=== PATIENT | male | born 1965 | race Caucasian/White ===

== ENCOUNTER 2019-03-12 20:58 | Inpatient (IN) | payer OTHER ==
[~2019-03-12] VITALS: Ht 188 cm; Wt 83.1 kg
[2019-03-12] VITALS (15 sets, daily range): BP systolic 69–107; BP diastolic 41–65
[2019-03-12] MEDS ORDERED: ISOSORBIDE DINI30 MG PO (21:02)
[2019-03-12] MEDS ORDERED: K-TAB10 MEQ PO (21:03)
[2019-03-12] MEDS ORDERED: PROZAC20 MG PO (21:03)
[2019-03-12] MEDS ORDERED: CHLORTHALIDONE25 MG PO (21:03)
[2019-03-12] MEDS ORDERED: AMBIEN10 MG PO (21:04)
[2019-03-12] MEDS ORDERED: SEROQUEL50 MG PO (21:04)
[2019-03-12] MEDS ORDERED: METOPROLOL TART25 MG PO (21:04)
[2019-03-12] MEDS ORDERED: BRILINTA90 MG PO (21:05)
[2019-03-12] MEDS ORDERED: PROTONIX20 MG PO (21:05)
[2019-03-12] MEDS ORDERED: REMERON30 MG PO (21:06)
--- NOTE | 2019-03-12 21:10 | NUR ---
EDUCATIONAL RESOURCE COORDINATOR INFORMED OF NEED FOR MENTAL HEALTH SCREENING.
--- NOTE | 2019-03-12 21:23 | NUR ---
URINAL AT BEDSIDE. PT CHANGED INTO BLUE PAPER SCRUBS AT THIS TIME. BELONGINGS PLACED AT NURSING STATION. PT BROTHER AT BEDSIDE STATES THIS IS NOT HIS BROTHERS USUAL BEHAVIOR. PT HAS BEEN IN [place] BEFORE DUE TO DEPRESSION/SI.
[2019-03-12 22:00] LABS: BASOPHILS 0.2 % (0-2); HEMATOCRIT 48.3 % (42.0-54.0); HEMOGLOBIN 16.9 g/dL (13.5-17.5); IMMATURE GRANULOCYTES 0.5 % (0-5); LYMPHOCYTES 15.9 % (15-50); MCV 88.6 fL (80.0-100.0); MEAN PLATELET VOLUME 11.1 fL (7.4-10.4); MONOCYTES 5.7 % (2-11); NEUTROPHILS 76.7 % (40-80); PLATELET COUNT 227 10x3/uL (130-400); RBC 5.45 10x6/uL (4.20-6.10); WBC 13.8 10x3/uL (4.8-10.8)
--- NOTE | 2019-03-12 22:00 | NUR ---
POISON CONTROL CALLED MONITOR S/S INFORMED.
[2019-03-12 22:13] LABS: ACETAMINOPHEN 1.6 ug/mL (10.0-30.0); ALBUMIN 2.8 g/dL (3.4-5.0); ALKALINE PHOSPHATASE 65 U/L (46-116); ALT (SGPT) 43 U/L (10-68); BILIRUBIN - TOTAL 0.11 mg/dL (0.2-1.3); CALC OSMOLALITY 285 mosm/kg (275-300); CALCIUM 8.2 mg/dL (8.5-10.1); CARBON DIOXIDE 26.9 mmol/L (21.0-32.0); CHLORIDE - SERUM 106 mmol/L (98-107); CREATININE - SERUM 0.8 mg/dL (0.6-1.3); GLUCOSE 101 mg/dL (74-106); MAGNESIUM - SERUM 2.1 mg/dL (1.8-2.4); PROTEIN - SERUM 5.4 g/dL (6.4-8.2); SODIUM 143 mmol/L (136-145); UREA NITROGEN 15 mg/dL (7-18); eGFR NON AFRICAN AMERICAN > 90 mL/min (90-120)
--- NOTE | 2019-03-12 23:00 | NUR ---
MENTAL HEALTH NURSE AT BEDSIDE. PT TO SEDATED FOR ASSESSEMENT AT THIS TIME. INFORMED.
[2019-03-12 23:01] LABS: APPEARANCE CLEAR (CLEAR); BILIRUBIN NEGATIVE (NEGATIVE); COLOR YELLOW (YELLOW); GLUCOSE NEGATIVE (NEGATIVE); KETONE NEGATIVE (NEGATIVE); NITRITE NEGATIVE (NEGATIVE); PROTEIN NEGATIVE (NEGATIVE); SPECIFIC GRAVITY 1.015 (1.005-1.020); UROBILINOGEN NORMAL (NORMAL)
[2019-03-12 23:08] LABS: UDS - AMPHET NEGATIVE QUAL (NEGATIVE); UDS - BARB NEGATIVE QUAL (NEGATIVE); UDS - BENZO NEGATIVE QUAL (NEGATIVE); UDS - COCAINE NEGATIVE QUAL (NEGATIVE); UDS - OPIATE NEGATIVE QUAL (NEGATIVE); UDS - PCP NEGATIVE QUAL (NEGATIVE); UDS - THC POSITIVE QUAL (NEGATIVE)
--- NOTE | 2019-03-12 23:17 | NUR ---
ns bolus complete pt bp still hypotensive md informed see emar
[2019-03-13] VITALS (41 sets, daily range): BP systolic 85–149; BP diastolic 45–98; Ht 188 cm; Wt 83.1 kg
--- NOTE | 2019-03-13 00:42 | NUR ---
MENTAL HEALTH RN AT BEDSIDE FOR ASSESSMENT
--- NOTE | 2019-03-13 00:45 | NUR ---
PT STANDING UP AT BEDSIDE USING URINAL AT THIS TIME.
--- NOTE | 2019-03-13 00:59 | NUR ---
DR LAL NOTIFIED AND REVIEWED PT's BEHAVIOR AND ASSESSMENT RESULTS. PT IS A LOW RISK PER DR LAL. DR LAL STATED TO GIVE RESOURCES TO PT AT TIME OF DISCHARGE. NO FURTHER ORDERRS AT THIS TIME. RESOURCES REVIEWED WITH PT AND HE VERBALIZED UNDERSTANDING.
--- NOTE | 2019-03-13 01:00 | NUR ---
PT EATING SANDWICH AND SPRITE AT THIS TIME DENIES NEEDS
--- NOTE | 2019-03-13 02:45 | NUR ---
RECEIVED PATIENT TO ICU ROOM 2310 VIA WC ACCOMPANIED BY [facility] ED STAFF JOSE M LINDO. ASSISTED TO ICU BED. MONITORS ATTATCHED PATIENT WITH ALARMS SET. VSS. ADMISSION ASSESSMENT COMPLETED PER FLOW SHEET WITH NO ACUTE DISTRESS OBSERVED. DENIES ANY PREVIOUS OR PRESENT SUICIDAL IDEATION OR ACTS OF SELF HARM.
--- NOTE | 2019-03-13 05:00 | NUR ---
RESTING WITH EYES CLOSED, ROUSES EASILY. A&O X 4. SPEECH CLEAR. VSS
[2019-03-13 09:05] LABS: BASOPHILS 0.5 % (0-2); EOSINOPHILS 1.8 % (0-7); HEMATOCRIT 46.9 % (42.0-54.0); IMMATURE GRANULOCYTES 0.1 % (0-5); LYMPHOCYTES 33.6 % (15-50); MCH 30.4 pg (26.0-34.0); MCHC 34.1 g/dL (31.0-37.0); MEAN PLATELET VOLUME 11.5 fL (7.4-10.4); MONOCYTES 11.3 % (2-11); NEUTROPHILS 52.7 % (40-80); PLATELET COUNT 231 10x3/uL (130-400); RBC 5.27 10x6/uL (4.20-6.10)
[2019-03-13 09:16] LABS: CALC OSMOLALITY 288 mosm/kg (275-300); CALCIUM 8.2 mg/dL (8.5-10.1); CARBON DIOXIDE 29.1 mmol/L (21.0-32.0); CHLORIDE - SERUM 109 mmol/L (98-107); CREATININE - SERUM 0.7 mg/dL (0.6-1.3); GLUCOSE 86 mg/dL (74-106); POTASSIUM - SERUM 4.1 mmol/L (3.5-5.1); SODIUM 145 mmol/L (136-145); UREA NITROGEN 14 mg/dL (7-18); eGFR NON AFRICAN AMERICAN > 90 mL/min (90-120)
[2019-03-13 09:29] LABS: WBC 7.4 10x3/uL (4.8-10.8)
--- NOTE | 2019-03-13 17:44 | NUR ---
0700 AWAKE ALERT VOICES NO COMPLAINTS ASSESSMENT COMPLETE
--- NOTE | 2019-03-13 17:45 | NUR ---
0900 APPETITE GOOD VOIDS WITHOUT DIFFICULTY
--- NOTE | 2019-03-13 17:45 | NUR ---
1100 APPETITE GOOD DENIES NAUSEA DENIES THOUT OF HARMING SELF
--- NOTE | 2019-03-13 17:46 | NUR ---
1300 REMAINS IN ROOM DENIES PAIN
--- NOTE | 2019-03-13 17:47 | NUR ---
1700 DR BHAKTA MADE ROUNDS ON PATIENT
--- NOTE | 2019-03-13 17:50 | NUR ---
[address] THAT DR BHAKTA DOESNT THINK PATIENT IS A RISK TO HARM HIMSELF
--- NOTE | 2019-03-13 19:45 | NUR ---
RECEIVED CARE OF PT, ASSESSMENT PER FLOWSHEET. PT ALERT AND ORIENTED, HR SR ON CM, VSS, PPP, DENIES ANY NEEDS AT THIS TIME, ABLE TO REPOSITION SELF WITHOUT DIFFICULTY. CALL LIGHT IN REACH.
--- NOTE | 2019-03-13 21:40 | NUR ---
[place] WITH POISON CONTROL CALLED, UPDATE GIVEN.
--- NOTE | 2019-03-13 23:50 | NUR ---
PT RESTING IN BED WITH EYES CLOSED, SR ON CM, VSS
--- NOTE | 2019-03-14 01:50 | NUR ---
PT RESTING IN BED WITH EYES CLOSED, BREATHING EVEN AND UNLABORED, CONT POC.
[2019-03-14 03:00] VITALS: BP 142/86
[2019-03-14 03:20] LABS: BASOPHILS 0.4 % (0-2); EOSINOPHILS 2.6 % (0-7); HEMATOCRIT 44.6 % (42.0-54.0); IMMATURE GRANULOCYTES 0.3 % (0-5); LYMPHOCYTES 34.1 % (15-50); MCH 29.8 pg (26.0-34.0); MCHC 33.6 g/dL (31.0-37.0); MCV 88.5 fL (80.0-100.0); MEAN PLATELET VOLUME 10.9 fL (7.4-10.4); MONOCYTES 11.6 % (2-11); PLATELET COUNT 196 10x3/uL (130-400); RBC 5.04 10x6/uL (4.20-6.10); WBC 7.3 10x3/uL (4.8-10.8)
[2019-03-14 03:27] LABS: CALC OSMOLALITY 291 mosm/kg (275-300); CALCIUM 8.4 mg/dL (8.5-10.1); CARBON DIOXIDE 29.5 mmol/L (21.0-32.0); CHLORIDE - SERUM 111 mmol/L (98-107); CREATININE - SERUM 0.8 mg/dL (0.6-1.3); GLUCOSE 118 mg/dL (74-106); SODIUM 145 mmol/L (136-145); UREA NITROGEN 17 mg/dL (7-18); eGFR NON AFRICAN AMERICAN > 90 mL/min (90-120)
[2019-03-14 03:28] LABS: POTASSIUM - SERUM 4.8 mmol/L (3.5-5.1)
--- NOTE | 2019-03-14 05:06 | NUR ---
AM LABS REVIEWED, NOTHING TO TREAT PER ELECTROLYTE PROTOCOL.
[2019-03-14 07:00] VITALS: BP 126/78
[2019-03-14 08:00] VITALS: BP 121/97
[2019-03-14 09:00] VITALS: BP 141/78
--- NOTE | 2019-03-14 10:13 | NUR ---
0700 AWAKE, ALERT VOICES NO COMPLAINTS ASSESSMENT COMPLETE
--- NOTE | 2019-03-14 10:14 | NUR ---
0900 VOIDING WITHOUT DIFFICULTY BM NOTED UP IN ROOM TO BSC APPETITE GOOD
--- NOTE | 2019-03-14 10:36 | CN ---
PATIENT NAME:GLENN MCCURDY MEDICAL RECORD: [id number] : 61 LOCATION:ALAN.2310 ADMIT DATE: 03/13/19 ACCOUNT: [id number] CONSULTING PHYSICIAN: JANETH LAL MD REFERRING PHYSICIAN: STEWART GENTILE MD DATE OF CONSULTATION: 03/13/2019 IDENTIFYING DATA: The patient is 53 years old and he was admitted to the hospital secondary to an overdose. CHIEF COMPLAINT: None. HISTORY OF PRESENT ILLNESS: The patient is a known chronically mentally ill person, who takes a number of medications. He forgot to take his morning medicines and had consumed several beers, he says it was 4, but his blood alcohol level sometime after arriving here was still 148. He remembered that he had not taken his medicines, so he took both his morning and night medicines together, passed out in the rain and was found by his brother. He admits that he did something that was irresponsible. There is no evidence of acute or direct dangerousness. No evidence that he intended to harm himself. There is strong evidence that he has a substance abuse problem and there is strong evidence that he has below average intelligence and uses extremely poor judgment, but no evidence of direct acute dangerousness. MENTAL STATUS EXAMINATION: The patient is awake, alert and oriented fully. His mood is euthymic. His affect appropriate. Thought processes are goal directed. Memory, concentration, and abstraction abilities are mildly impaired, and he denies any intent to harm himself or others as well as overt psychotic symptoms. ASSESSMENT: 1. Schizophrenia by history. 2. Alcohol abuse. PLAN: The patient is seeing a therapist at the [facility]. He should continue to do this. He clearly has a substance abuse problem even though he is minimizing it. He says he will not drink anymore and that he will go to the outpatient appointments. I hope that is correct. I think that he did have the potential to be quite serious particularly if he had passed out face down in the mud. Unfortunately, I do not think that there is much that can be done for him on an inpatient basis and he certainly does not want to go inpatient even though I would have referred him to it had he had any desire to do so. He wants to go home. He wants to follow up with the outpatient program at [facility], and he says he is not going to drink. I would recommend he be discharged as soon as he is medically stable. TRANSINT:[id number] Voice Confirmation ID: [id number] DOCUMENT ID: [id number] CONSULT REPORT [id number] GLENN MCCURDY PETER MD at 1036 CC: [id number] DICTATION DATE: 03/13/19 1535 JOCKEY'S AGENT: 03/14/19 0330 ADM IN [place] [id number] [place] [address]
[2019-03-14 11:00] VITALS: BP 137/93
--- NOTE | 2019-03-14 16:18 | NUR ---
1300 RESTING QUIETLY AFTER LUNCH
--- NOTE | 2019-03-14 16:18 | NUR ---
1100 APPETITE GOOD VOICES NO COMPLAINTS
--- NOTE | 2019-03-14 16:20 | NUR ---
1500 DISCHARGE ORDERS WRITTEN CALLED PHARMACY TO RETURN HIS HOME MEDS TP HIS ROOM
--- NOTE | 2019-03-14 16:21 | NUR ---
1515 HOME MEDS RETURNED WAITING FOR PATIENTS BROTHER TO ARRIVE FOR TRANSPORT HOME.
--- NOTE | 2019-03-14 19:05 | MORECARE ---
CASE MANAGEMENT DISCHARGE SUMMARY PATIENT: GLENN MCCURDY UNIT: [id number] ADM DATE: 03/13/19 AGE: 53 : 61 SEX: M ROOM/BED: D.2310 AUTHOR: FELECIA VÁZQUEZ PHYSICIAN: REFERRING PHYSICIAN: STEWART GENTILE MD DATE OF SERVICE: 03/14/19 Discharge Plan Patient Name: GLENN MCCURDY [facility] [facility] 1965 Planned Disposition: Anticipated Discharge Date: 03/14/19 Discharge Date: 03/14/2019 Expected LOS: 1 Initial Reviewer: [email or web address] Initial Review Date: 03/13/2019 Generated: 03/14/19 8:05 pm Patient Name: GLENN MCCURDY Page [id number] at 1905 All edits/amendments must be made on the electronic document DICTATION DATE: 03/14/191903 AIRPLANE PILOT COMMERCIAL: MARIA ESTHER 03/14/191903 RPT#: [id number] DC DATE:03/14/19 STATUS: DIS IN [facility] [address] [place] [address] END OF REPORT
== END 2019-03-14 17:15 | disposition home or self-care (01) | DRG 918 ==
LOC: D.ER 20:58 → D.ICU 03-13 00:24 → OBSVTIME 03-13 00:24 → D.ICU 03-13 00:24
PROVIDERS: Family Medicine; ADMIT Internal Medicine Nephrology; ATTEND Internal Medicine Nephrology
DX: T42.6X1A Poisoning by other antiepileptic and sedative-hypnotic drugs, accidental (unintentional), initial encounter (principal); F17.203 Nicotine dependence unspecified, with withdrawal; F32.9 Major depressive disorder, single episode, unspecified; F20.9 Schizophrenia, unspecified; I10 Essential (primary) hypertension; K21.9 Gastro-esophageal reflux disease without esophagitis; I25.10 Atherosclerotic heart disease of native coronary artery without angina pectoris; F10.10 Alcohol abuse, uncomplicated

== ENCOUNTER 2019-05-05 08:00 | Day surgery (SDC) | payer OTHER ==
[2019-05-04 15:22] LABS: HEMATOCRIT 45.8 % (42.0-54.0); HEMOGLOBIN 16.2 g/dL (13.5-17.5); MCH 30.5 pg (26.0-34.0); MCHC 35.4 g/dL (31.0-37.0); MCV 86.3 fL (80.0-100.0); MEAN PLATELET VOLUME 10.4 fL (7.4-10.4); RBC 5.31 10x6/uL (4.20-6.10); WBC 12.6 10x3/uL (4.8-10.8)
[2019-05-04 15:28] LABS: APTT 25.4 SECONDS (22.8-39.4); INR 1.05 (0.85-1.17); PROTIME 13.2 SECONDS (11.6-15.0)
--- NOTE | 2019-05-04 16:26 | NUR ---
YI APPT: PATIENT STATES WAS INSTRUCTED TO HOLD BRILINTA PRIOR TO SURGERY. LAST DOSE REPORTED 04/29/19. PATIENT REPORTS HE HASN'T BEEN TAKING ANY OF HIS PRESCRIBED HOME MEDICATIONS SINCE 04/29/19. STATES "I DON'T NEED THEM, I'VE BEEN DOING FINE & FEELING FINE". INFORMED PATIENT THE IMPORTANCE OF TAKING MEDICATIONS PRESCRIBED OR NOTIFY MD THAT HE WANTS TO DISCONTINUE MEDS. GEOFFREY AT DR. KIRKPATRICK'S OFFICE NOTIFIED OF ABOVE.
[~2019-05-05] VITALS: Ht 188 cm; Wt 84.4 kg
[~2019-05-05 08:00] MED LIST: AMBIEN10 MG PO; BRILINTA90 MG PO; CHLORTHALIDONE25 MG PO; ISOSORBIDE DINI30 MG PO; K-TAB10 MEQ PO; METOPROLOL TART25 MG PO; PROTONIX20 MG PO; PROZAC20 MG PO; REMERON30 MG PO; SEROQUEL50 MG PO
[2019-05-05 08:22] VITALS: BP 147/89; Ht 188 cm; Wt 84.4 kg
--- NOTE | 2019-05-05 11:15 | OP ---
PATIENT NAME: GLENN MCCURDY MEDICAL RECORD: [id number] :61 LOCATION:D.OPS ADMISSION DATE: SURGEON: MANJIT KIRKPATRICK MD DATE OF OPERATION: 05/05/2019 SURGEON: Manjit Kirkpatrick MD ANESTHESIA: TIVA by Glenis Brand CRNA. DIAGNOSIS: Urethral meatal stenosis, bladder outlet obstruction. PROCEDURE: Cystoscopy. FINDINGS: Urethral meatal stricture which was dilated with the scope. Bladder neck obstruction. In the bladder, there are single ureteral orifices bilaterally. There are no bladder tumors. BLOOD LOSS: None. CLINICAL HISTORY: This is a 53-year-old male, who complains of pain at the tip of the penis with voiding. Otherwise, he has nocturia times zero. No urgency, no frequency. There is some hesitancy getting started and the stream is weak. He comes today for cystoscopy to look for urethral stricture. He is not allergic to any medications. He was given Ancef barrel rifler button to the OR. DESCRIPTION OF PROCEDURE: The patient was given IV sedation. He was then placed into dorsal lithotomy position and prepped and draped. A 17-Bulgarian cystoscope with 30-degree lens was used for visualization. There was some difficulty getting through the urethral meatus, but I managed to angle the scope in so that the urethral meatal stenosis was dilated. The rest of the urethra shows no obstruction. The prostate was nonobstructive. The bladder neck is somewhat tight and the bladder neck was tall. Going into the bladder, there were no bladder tumors. The bladder was mildly trabeculated. He has single ureteral orifices on each side. The bladder was then emptied through the scope sheath and the scope was removed. I will see the patient in 2 weeks' time to check on his voiding symptoms. TRANSINT:[id number] Voice Confirmation ID: [id number] DOCUMENT ID: [id number] MANJIT KIRKPATRICK MD at 1115 CC: [id number] DICTATION DATE: 05/05/19 1022 CANDY SUPERVISOR: 05/05/19 1104 [facility] [address] [id number]
--- NOTE | 2019-05-05 11:45 | NUR ---
1140 DR. KIRKPATRICK ROUNDS ON PT.
== END 2019-05-05 12:15 | disposition home or self-care (01) ==
LOC: D.OPS 08:00 → D.PAN 12:45 → D.OPS 12:45
PROVIDERS: Anesthesiology; ATTEND Urology
DX: N35.911 Unspecified urethral stricture, male, meatal (principal); N32.0 Bladder-neck obstruction; Z01.812 Encounter for preprocedural laboratory examination

== ENCOUNTER 2019-06-19 20:43 | Emergency (ER) | payer OTHER ==
[~2019-06-19] VITALS: Ht 188 cm; Wt 77.3 kg
[2019-06-19 20:50] VITALS: Ht 188 cm; Wt 77.3 kg
[2019-06-20] MEDS ORDERED: TYLENOL #4 W/CO1 TAB PO (00:15)
[2019-06-20] MEDS ORDERED: BLEPH-105 ML RIGHT EYE (00:15)
[2019-06-20 00:39] VITALS: BP 106/75
== END 2019-06-20 00:35 | disposition home or self-care (01) ==
LOC: D.ER 20:43
DX: S90.02XA Contusion of left ankle, initial encounter (principal); X58.XXXA Exposure to other specified factors, initial encounter

== ENCOUNTER 2019-09-10 15:00 | Emergency (ER) | payer OTHER ==
[~2019-09-10] VITALS: Ht 177.8 cm; Wt 88.6 kg
[~2019-09-10 15:00] MED LIST changes: +BLEPH-105 ML RIGHT EYE; +TYLENOL #4 W/CO1 TAB PO
[2019-09-10 15:06] VITALS: Ht 177.8 cm; Wt 88.6 kg
[2019-09-10] MEDS ORDERED: TRILEPTAL300 MG PO (15:15)
[2019-09-10] MEDS ORDERED: PROTONIX20 MG PO (15:15)
[2019-09-10] MEDS ORDERED: ZOCOR40 MG PO (15:15)
[2019-09-10] MEDS ORDERED: BAYER ASPIRIN325 MG (15:15)
[2019-09-10] MEDS ORDERED: ALBUTEROL SULF8.5 GM (15:16)
[2019-09-10 15:57] LABS: BASOPHILS 0.6 % (0-2); EOSINOPHILS 0.3 % (0-7); HEMATOCRIT 45.2 % (42.0-54.0); HEMOGLOBIN 15.2 g/dL (13.5-17.5); IMMATURE GRANULOCYTES 0.6 % (0-5); LYMPHOCYTES 12.4 % (15-50); MCH 30.5 pg (26.0-34.0); MCHC 33.6 g/dL (31.0-37.0); MCV 90.8 fL (80.0-100.0); MEAN PLATELET VOLUME 11.6 fL (7.4-10.4); NEUTROPHILS 73.1 % (40-80); RBC 4.98 10x6/uL (4.20-6.10); RDW 13.8 % (11.5-14.5); WBC 9.9 10x3/uL (4.8-10.8)
[2019-09-10 15:59] LABS: PLATELET COUNT 194 10x3/uL (130-400)
[2019-09-10 16:04] LABS: CALC OSMOLALITY 276 mosm/kg (275-300); CALCIUM 8.6 mg/dL (8.5-10.1); CARBON DIOXIDE 31.2 mmol/L (21.0-32.0); CHLORIDE - SERUM 104 mmol/L (98-107); CREATININE - SERUM 0.8 mg/dL (0.6-1.3); GLUCOSE 93 mg/dL (74-106); POTASSIUM - SERUM 3.7 mmol/L (3.5-5.1); SODIUM 140 mmol/L (136-145); UREA NITROGEN 8 mg/dL (7-18); eGFR NON AFRICAN AMERICAN > 90 mL/min (90-120)
[2019-09-10 16:08] LABS: ALBUMIN 3.4 g/dL (3.4-5.0); ALKALINE PHOSPHATASE 104 U/L (46-116); ALT (SGPT) 36 U/L (10-68); PROTEIN - SERUM 7.1 g/dL (6.4-8.2)
[2019-09-10 16:50] LABS: APPEARANCE CLEAR (CLEAR); COLOR YELLOW (YELLOW)
[2019-09-10 16:51] LABS: BILIRUBIN NEGATIVE (NEGATIVE); GLUCOSE NEGATIVE (NEGATIVE); KETONE NEGATIVE (NEGATIVE); NITRITE NEGATIVE (NEGATIVE); PROTEIN NEGATIVE (NEGATIVE); UROBILINOGEN NORMAL (NORMAL)
[2019-09-10 16:59] LABS: UDS - AMPHET NEGATIVE QUAL (NEGATIVE); UDS - BARB NEGATIVE QUAL (NEGATIVE); UDS - BENZO NEGATIVE QUAL (NEGATIVE); UDS - COCAINE NEGATIVE QUAL (NEGATIVE); UDS - OPIATE NEGATIVE QUAL (NEGATIVE); UDS - PCP NEGATIVE QUAL (NEGATIVE); UDS - THC NEGATIVE QUAL (NEGATIVE)
--- NOTE | 2019-09-10 17:28 | NUR ---
PT IS A LOW RISK PER ASSESSMENT AND DR. LAL. REPORTED THIS TO CHARGE NURSE AND ATTENDING. RESOURCES GIVEN BUT PT REFUSED THEM. PT DENIES SI AND STATED HE HAS HAD THOUGHTS BUT WOULD NEVER DO IT. PT STATED HE HAS NEVER ATTEMPTED BUT WAS PLACED IN 2006 IN [place]. PT STATED HE ALWAYS SAYS HE IS SUICIDAL BECAUSE HE GOES TO FACILITIES TO MAKE FRIENDS BECAUSE HE HAS NO ONE HERE. PT HAS BEEN WITHOUT HIS MEDICATION FOR 5 DAYS. ATTENDING STATED HE HAD TOLD HER HE WAS SUICIDAL BUT THE PT TELLS THE NURSES THAT HE IS NOT.
[2019-09-11 02:42] LABS: PRO BNP 39 pg/mL (0-125)
[2019-09-11 02:45] LABS: TROPONIN-I < 0.017 ng/mL (0.000-0.060)
[2019-09-11] MEDS ORDERED: ZITHROMAX500 MG PO (06:15)
[2019-09-11 06:52] VITALS: BP 109/66
== END 2019-09-11 12:31 ==
LOC: D.ER 15:00
PROVIDERS: Family Medicine
DX: R45.851 Suicidal ideations (principal); J20.9 Acute bronchitis, unspecified; J44.0 Chronic obstructive pulmonary disease with (acute) lower respiratory infection; J11.1 Influenza due to unidentified influenza virus with other respiratory manifestations; R45.850 Homicidal ideations; I25.2 Old myocardial infarction; I10 Essential (primary) hypertension